=== PATIENT | male | born 1990 | race Two or more races ===

== ENCOUNTER 2024-12-17 17:13 | Emergency (ER) | payer MEDICAID, OTHER ==
[~2024-12-17] VITALS: Ht 167.6 cm; Wt 101.7 kg
--- NOTE | 2024-12-17 18:26 | DVH ---
EXAM: XY R ELBOW 3 VIEW XRAY HISTORY: Pain and swelling COMPARISON: None TECHNIQUE: Three views of the right elbow were performed. FINDINGS: No acute fracture. There is a chronic olecranon bursitis and there may be edema adjacent to the media l malleolus. Probably due to acute trauma. IMPRESSION: 1. There is an osteophytes suggesting chronic lacunar bursitis inner subcutaneous edema adjacent to t he medial malleolus suggesting possible soft tissue injury.
[2024-12-17 18:30] VITALS: BP 137/97; PULSE 86; RESP 16; TEMP 99.4; O2SAT 98
--- NOTE | 2024-12-17 18:38 | DVH ---
EXAM: XY R HAND 3 VIEW XRAY CLINICAL HISTORY: Pain swelling COMPARISON: None TECHNIQUE: XY R HAND 3 VIEW XRAY Findings/Impression: 3 views of the right hand. There is no evidence of an acute fracture, dislocation, blastic, or lytic lesions. No radiopaque foreign bodies. Moderate soft tissue edema.
--- NOTE | 2024-12-17 18:39 | DVH ---
EXAM: XY L HAND 3V XRAY CLINICAL HISTORY: Swelling and pain COMPARISON: None TECHNIQUE: XY L HAND 3V XRAY Findings/Impression: 3 views of the left hand. Mildly displaced fracture of the distal aspect of the 2nd proximal phalanx with moderate soft tissue edema of the 2nd digit. There is no evidence of dislocation, blastic, or lytic lesions. No radiopaque foreign bodies.
--- NOTE | 2024-12-17 19:12 | ED.PDOC ---
Cy. trauma (HPI) HPI Comments Reports left index finger, right hand, and right elbow pain and swelling over the last 2 weeks. Hx gout. Chief Complaint: Upper Extremity Time Seen by MD: 17:36 Primary Care Provider: unknown Reviewed notes: Nurses Notes, Medications, Allergies Allergies: Coded Allergies: NO KNOWN ALLERGIES (Unverified , 12/17/24) Home Meds Active Scripts Colchicine (Colchicine) 0.6 Mg Cap, 2 CAP PO ONCE PRN for 2 Days, #6 CAP TAKE 2 CAPSULES X1 NOW THEN 1 CAPSULE 1 HOUR AFTER. MAY REPEAT IN 24 HOURS Prov:OLVINDARYL Jasso [facility] 12/17/24 Methylprednisolone (Medrol Dosepak) 4 Mg Michael, 4 MG PO UD for 6 Days, #21 TAB UAD Prov:OLVINDARYL [facility] 12/17/24 Information Source: Patient Mode of Arrival: Ambulatory Past Medical History PAST MEDICAL HISTORY: Denies Surgical History: Denies all surgeries Family History Family History: Unknown Social History Smoker: Non-Smoker Alcohol: Denies ETOH Use Drugs: Denies Drug Use Constitutional: denies: chills, diaphoresis, fatigue, fever, malaise, sweats, weakness, others EENTM: denies: blurred vision, double vision, ear bleeding, ear discharge, ear drainage, ear pain, ear ringing, eye pain, eye redness, hearing loss, mouth pain, mouth swelling, nasal discharge, nose bleeding, nose congestion, nose pain, photophobia, tearing, throat pain, throat swelling, voice changes, others Respiratory: denies: cough, hemoptysis, orthopnea, SOB at rest, shortness of breath, SOB with excertion, stridor, wheezing, others Gastrointestinal: denies: abdomen distended, abdominal pain, blood streaked bowels, constipated, diarrhea, dysphagia, difficulty swallowing, hematemesis, melena, nausea, poor appetite, poor fluid intake, rectal bleeding, rectal pain, vomiting, others Genitourinary: denies: burning, dysuria, flank pain, frequency, hematuria, incontinence, penile discharge, penile sore, pain, testicle pain, testicle swelling, urgency, others Neurological: denies: dizziness, fainting, headache, left sided numbness, left sided weakness, numbness, paresthesia, pre-existing deficit, right sided numbness, right sided weakness, seizure, speech problems, tingling, tremors, weakness, others Musculoskeletal: reports: others (HAND PAIN AND ELBOW PAIN); denies: back pain, gout, joint pain, joint swelling, muscle pain, muscle stiffness, neck pain Integumetry: denies: bruises, change in color, change in hair/nails, dryness, laceration, lesions, lumps, rash, wounds, others Allergic/Immunocompromised: denies: Difficulty Healing, Frequent Infections, Hives, Itching, others Hematologic/Lymphatic: denies: anemia, blood clots, easy bleeding, easy bruising, swollen glands, others Endocrine: denies: excessive hunger, excessive sweating, excessive thirst, excessive urination, flushing, intolerance to cold, intolerance to heat, unexplained weight gain, unexplained weight loss, others Psychiatric: denies: anxiety, bipolar disorder, depression, hopeless, panic disorder, schizophrenia, sleepless, suicidal, others Physical Exam General Appearance: No Apparent Distress, Normal HEENT: Pharynx Normal Neck: Full Range of Motion, Non-Tender Respiratory: Lungs Clear, No Respiratory Distress, Normal Breath Sounds Cardiovascular: No Edema, No Murmur, Normal Peripheral Pulses, Regular Rate/Rhythm Breast Exam: Deferred Gastrointestinal: Non Tender, Soft Genitalia: Deferred Pelvic: Deferred Rectal: Deferred Extremities: Normal capillary refill, Normal inspection, Normal range of motion, Non-tender, No pedal edema Musculoskeletal : Location: Bilateral (LEFT TM INDEX FINGER MODERATE EDEMA WITH MODERATE TENDERNESS NO NOTED D ANGULATION STRENGTH SENSORY MOTION INTACT CAP REFILL LESS THAN 3 SECONDS. RIGHT HAND NOTED DORSUM SWELLING WITH REDNESS AND TENDERNESS NO NOTED STREAKING NOTED WARMTH) Apperance: Normal Neurologic: Alert, drupal programmer II-XII nml as Tested, No Motor Deficits, Normal Affect, Normal Mood, No Sensory Deficits Cerebellar Function: Normal Reflexes: Normal Skin: Dry, Normal Color, Warm Lymphatic: No Adenopathy Was a procedure done? Was a procedure done?: No Differential Diagnosis Multiple Trauma: Fractures X-Ray, Labs, Meds, VS Vital Signs Date Time Temp Pulse Resp B/P (MAP) Pulse Ox O2 Delivery O2 Flow Rate FiO2 12/17/24 18:30 99.4 86 16 137/97 (110) 98 99.4 12/17/24 18:30 86 16 98 Room Air 12/17/24 17:44 99.4 86 16 137/97 (110 98 99.4 Current Medications Medications (Trade) Dose Ordered Sig/Salma Route Start Time Stop Time Status Last Admin Ibuprofen (Motrin Tablet) 800 mg ONCE ONCE PO 12/17/24 19:45 12/17/24 19:46 DC 12/17/24 20:39 X-Ray, Labs, Meds, VS Comment CLINICAL HISTORY: Swelling and pain COMPARISON: None TECHNIQUE: XY L HAND 3V XRAY Findings/Impression: 3 views of the left hand. Mildly displaced fracture of the distal aspect of the 2nd proximal phalanx with moderate soft tissue edema of the 2nd digit. There is no evidence of dislocation, blastic, or lytic lesions. RIGHT HAND X-RAY SHOWS NO ACUTE FRACTURES OR OSSEOUS LESIONS OR DISLOCATIONS RIGHT ELBOW SHOWS NO ACUTE FRACTURES ALSO RELEASING OR DISLOCATIONS. NOTED 2ND DIGIT LEFT HAND PROXIMAL PHALANX FRACTURE PATIENT PLACED IN SPLINT. OTHER LESIONS AND SWELLING WITH WARMTH RELATED TO PATIENT'S GOUT WE WILL TREAT WITH MEDROL DOSEPAK AND COLCHICINE SCRIPT TO PHARMACY ON FILE ADVISED TO TAKE MEDICATIONS PRESCRIBED SIDE EFFECTS DISCUSSED. DISCUSSED ICE AND ELEVATION. YOUR PCP IN 1-2 DAYS. ER RETURN PRECAUTIONS GIVEN PATIENT INDICATES UNDERSTANDING AND AGREES WITH DISCHARGE PLAN OF CARE Time of 1ST Reevaluation: 19:12 Reevaluation 1ST: Improved Patient Education/Counseling: Diagnosis, Treatment, Prognosis, Need For Follow Up Family Education/Counseling: No Family Present Departure 1 Departure Time of Disposition: 19:12 Impression: Primary Impression: Fracture, finger, distal phalanx Qualified Codes: S62.631A - Displaced fracture of distal phalanx of left index finger, initial encounter for closed fracture Additional Impression: Gout attack Qualified Codes: M10.9 - Gout, unspecified Disposition: HOME / SELF CARE / HOMELESS Condition: Stable e-Prescriptions Colchicine (Colchicine) 0.6 Mg Cap 2 CAP PO ONCE PRN for 2 Days, #6 CAP TAKE 2 CAPSULES X1 NOW THEN 1 CAPSULE 1 HOUR AFTER. MAY REPEAT IN 24 HOURS Prov: DARYL BAH 12/17/24 Methylprednisolone (Medrol Dosepak) 4 Mg Michael 4 MG PO UD for 6 Days, #21 TAB UAD Prov: DARYL BAH 12/17/24 Discharged With: Self Critical Care Note Critical Care Time?: No Stability Stability form required: No DARYL BAH Dec 17, 2024 19:12
[2024-12-17] MEDS ORDERED: METH4PAK PO (19:22)
[2024-12-17] MEDS ORDERED: COLC1CAP PO (19:22)
[2024-12-17] MEDS: IBUPROFEN 800 MG TAB PO ONE (20:39)
== END 2024-12-17 20:44 | disposition home or self-care (01) ==
LOC: ER 17:13
DX: M10.9 Gout, unspecified (principal); M79.645 Pain in left finger(s); M25.521 Pain in right elbow
CPT/HCPCS: 29130; 73080; 73130